=== PATIENT | female | born 1950 | race Caucasian/White ===

== ENCOUNTER 2017-06-28 09:46 | Emergency (ER) | payer MEDICARE, OTHER ==
[2017-06-28] MEDS ORDERED: diphenhydrAMINE 50 MG/ML SDV IVPUSH ONE (10:45)
[2017-06-28] MEDS ORDERED: EPINEPHrine 1 MG/ML SDV IM ONE ×2 (10:45→11:53)
[2017-06-28] MEDS ORDERED: methylPREDNISolone Sodium Succinate 125 MG/2 ML SDV IVPUSH ONE (10:45)
[2017-06-28] MEDS ORDERED: Famotidine 20 MG/2 ML SDV IVPUSH ONE (10:45)
[2017-06-28] MEDS ORDERED: Sodium Chloride 0.9% 10 ML Syringe FLUSH PRN (10:45)
--- NOTE | 2017-06-28 10:49 | EDM.PDOC ---
ED HPI GENERAL MEDICAL PROBLEM - General Chief Complaint: Skin Complaint Stated Complaint: HIVES,FACIAL SWELLING Time Seen by Provider: 06/28/17 10:28 Source of Information: Reports: Patient, RN Notes Reviewed - History of Present Illness INITIAL COMMENTS - FREE TEXT/NARRATIVE: 66-year-old lady comes in with onset of hives 3 or 4 days ago. She had been on minocycline for about a month and also niacin for pemphigoid vulgaris. That all has gotten better and totally cleared up. However now the hives have been worsening over the past 2-3 days and also she has developed some swelling of her lower lip and soft tissue under her jaw. She did take 5 mg Zyrtec last evening and then again 5 mg this morning and that has helped with the hives have not faded out. They're just less itchy. She does not feel short of breath. However she does feel some discomfort in her throat with swallowing. He is never had allergic reaction before. No other meds at this time. Tongue does not feel swollen. She did have some lobster last week but does not think the hives started coming until a day or 2 later. Treatments RINKMAN: Reports: Other (see below) Other Treatments RINKMAN: [email or web address] - Related Data Allergies Allergy/AdvReac Type Severity Reaction Status Date / Time No Known Allergies Allergy Verified 06/28/17 10:14 Home Meds: Home Meds Minocycline [Minocin] 100 mg PO BID 06/28/17 [History] Niacinamide 500 mg PO TID 06/28/17 [History] Past Medical History - Past Health History Medical/Surgical History: Denies Medical/Surgical History Musculoskeletal History: Reports: RA Dermatologic History: Reports: Urticaria, Other (See Below) Other Dermatologic History: bullosa acquisita Social & Family History - Family History Family Medical History: Noncontributory - Tobacco Use Smoking Status *Q: Never Smoker - Caffeine Use Caffeine Use: Reports: None - Recreational Drug Use Recreational Drug Use: No ED ROS GENERAL - Review of Systems Review Of Systems: See Below Constitutional: Denies: Fever, Chills, Diaphoresis HEENT: Reports: Other. Denies: Throat Pain Respiratory: Denies: Shortness of Breath (Swelling of lower lip), Pleuritic Chest Pain Cardiovascular: Denies: Chest Pain GI/Abdominal: Denies: Abdominal Pain, Nausea, Vomiting Musculoskeletal: Reports: Other (History of chronic rheumatoid arthritis) Skin: Reports: Urticaria (Scattered hives bilateral knees bilateral forearms and shoulders primarily, a couple of small hives on her neck, chest abdomen and back are all relatively clear) Neurological: Reports: No Symptoms ED EXAM, SKIN/RASH Exam: See Below General Appearance: Alert, Mild Distress Eye Exam: Bilateral Eye: PERRL Throat/Mouth: Other (Results mild to moderate swelling of her lower lip, tongue is not swollen, pharynx not inflamed) Head: Facial Swelling (Swelling of the lower lip, no other facial swelling) Respiratory/Chest: No Respiratory Distress, Lungs Clear, Normal Breath Sounds Cardiovascular: Tachycardia Extremities: Other (Severe arthritic deformity both hands, rheumatoid nodules both forearms) Neurological: Alert, Oriented, No Motor/Sensory Deficits Skin: Warm, Dry, Normal Color Course - Vital Signs Last Recorded V/S: Last Vital Signs Temp 97.6 F 06/28/17 10:00 Pulse 106 H 06/28/17 10:00 Resp 18 06/28/17 10:00 BP 155/83 H 06/28/17 10:00 Pulse Ox 99 06/28/17 10:00 - Orders/Labs/Meds Orders: Active Orders 24 hr Category Date Time Status Peripheral IV Care [RC] . DIRECTED Care 06/28/17 10:46 Active Sodium Chloride 0.9% [Saline Flush] Med 06/28/17 10:45 Active 10 ml FLUSH ASDIRECTED PRN Peripheral IV Insertion Adult [OM.PC] Stat Oth 06/28/17 10:45 Ordered Medication Orders Sodium Chloride (Saline Flush) 10 ml FLUSH ASDIRECTED PRN PRN Reason: Keep Vein Open Last Admin: 06/28/17 11:00 Dose: 10 ml Meds: Medications Generic Name Dose Route Start Last Admin Trade Name Freq PRN Reason Stop Dose Admin Sodium Chloride 10 ml 06/28/17 10:45 06/28/17 11:00 Saline Flush FLUSH 10 ml ASDIRECTED PRN Administration Keep Vein Open Discontinued Medications Generic Name Dose Route Start Last Admin Trade Name Freq PRN Reason Stop Dose Admin Diphenhydramine HCl 25 mg 06/28/17 10:45 06/28/17 10:59 Benadryl IVPUSH 06/28/17 10:46 25 mg ONETIME ONE Administration Epinephrine HCl 0.3 mg 06/28/17 10:45 06/28/17 10:58 Adrenalin IM 06/28/17 10:46 0.3 mg ONETIME ONE Administration Epinephrine HCl 0.2 mg 06/28/17 11:53 06/28/17 12:00 Adrenalin IM 06/28/17 11:54 0.2 mg ONETIME ONE Administration Famotidine 20 mg 06/28/17 10:45 06/28/17 11:00 Pepcid IVPUSH 06/28/17 10:46 20 mg ONETIME ONE Administration Methylprednisolone Sodium Succinate 125 mg 06/28/17 10:45 06/28/17 10:59 Solu-Medrol IVPUSH 06/28/17 10:46 125 mg ONETIME ONE Administration - Re-Assessments/Exams Free Text/Narrative Re-Assessment/Exam: 06/28/17 11:40. Patient doing much better hives are still present but feeding. Lower lip swelling is still present but less from arrival. She feels like her neck is less swollen. Will give further appendectomy 0.2 mg IM at this time. 12:30. Eyes are mostly gone, mouth and neck continues to get better. she does feel up to going home at this time. Discharge instructions as documented. Departure - Departure Time of Disposition: 12:25 Disposition: Home, Self-Care 01 Condition: Fair Clinical Impression: Allergic angioedema Qualifiers: Encounter type: initial encounter Qualified Code(s): T78.3XXA - Angioneurotic edema, initial encounter - Discharge Information Referrals: PCP,Not In Area [Primary Care Provider] - Forms: ED Department Discharge Additional Instructions: Take the additional 5 mg Zyrtec as discussed when you get home and than continue that either 10 mg daily or all at one time or 5 mg twice daily. Prednisone 20 mg daily with your next dose this evening and then the next 2 mornings. Follow-up clinic if not better and getting back to normal within 2-3 days. Return to ED if symptoms worsening in any way. - My Orders Last 24 Hours: My Active Orders 06/28/17 10:45 Sodium Chloride 0.9% [Saline Flush] 10 ml FLUSH ASDIRECTED PRN Peripheral IV Insertion Adult [OM.PC] Stat 06/28/17 10:46 Peripheral IV Care [RC] . DIRECTED - Assessment/Plan Last 24 Hours: My Active Orders 06/28/17 10:45 Sodium Chloride 0.9% [Saline Flush] 10 ml FLUSH ASDIRECTED PRN Peripheral IV Insertion Adult [OM.PC] Stat 06/28/17 10:46 Peripheral IV Care [RC] . DIRECTED
== END 2017-06-28 13:00 | disposition home or self-care (01) ==
LOC: JD.ED 09:46
DX: T78.3XXA Angioneurotic edema, initial encounter (principal)
CPT/HCPCS: 96372; 96374; 96375; 99283; J0171; J1200; J2930; J7050; 99284

== ENCOUNTER 2017-06-30 08:05 | Emergency (ER) | payer MEDICARE, OTHER ==
[2017-06-30] MEDS ORDERED: EPINEPHrine 1 MG/ML SDV IM ONE (08:35)
[2017-06-30] MEDS ORDERED: methylPREDNISolone Sodium Succinate 125 MG/2 ML SDV IVPUSH ONE (08:36)
[2017-06-30] MEDS ORDERED: Famotidine 20 MG Tab PO ONE (08:36)
--- NOTE | 2017-06-30 10:56 | EDM.PDOC ---
ED HPI GENERAL MEDICAL PROBLEM - General Chief Complaint: Allergic Reaction Stated Complaint: ALLERGIC REACTION THROAT CLOSING UP Time Seen by Provider: 06/30/17 08:16 Source of Information: Reports: Patient, RN Notes Reviewed - History of Present Illness INITIAL COMMENTS - FREE TEXT/NARRATIVE: 66-year-old lady comes in with swelling of her upper neck, difficulty swallowing. She presented to the ED 2 days ago with scattered hives similar symptoms along with swelling of her lower lip. Please refer to that record for details. She had been having allergic symptoms for about 3 or 4 days at that time. Treated with IV Solu-Medrol, 0.3 mg epi IM other meds as appropriate with good resolution of symptoms. She states she did better yesterday but then this morning awakened the swelling of her upper neck present but not as bad as 2 days ago. She has no rash or hives today. It's that all cleared yesterday. No shortness of breath or difficulty breathing. 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 - Related Data Allergies Allergy/AdvReac Type Severity Reaction Status Date / Time minocycline Allergy Respiratory Verified 06/30/17 08:17 Distress Home Meds: Home Meds Prednisone [IJD: predniSONE] 20 mg PO DAILY 06/30/17 [History] Past Medical History - Past Health History Medical/Surgical History: Denies Medical/Surgical History Musculoskeletal History: Reports: RA Dermatologic History: Reports: Urticaria, Other (See Below) Other Dermatologic History: bullosa acquisita Social & Family History - Family History Family Medical History: Noncontributory - Tobacco Use Smoking Status *Q: Never Smoker Second Hand Smoke Exposure: No - Caffeine Use Caffeine Use: Reports: Coffee - Recreational Drug Use Recreational Drug Use: No ED ROS ALLERGIC REACTION - Review of Systems Review Of Systems: See Below Constitutional: Denies: Fever, Chills, Diaphoresis HEENT: Reports: Throat Swelling (Swelling of upper anterior neck below the jaw) . Denies: Throat Pain Respiratory: Denies: Shortness of Breath, Wheezing, Cough Cardiovascular: Denies: Chest Pain GI/Abdominal: Reports: Other (Difficulty swallowing). Denies: Abdominal Pain Musculoskeletal: Denies: Shoulder Pain, Arm Pain, Back Pain Skin: Denies: Pruritis (Previous hives and uticaria are gone), Rash ED EXAM GENERAL NO PERIP PULSE - Physical Exam Exam: See Below General Appearance: Alert, Mild Distress Eye Exam: Bilateral Eye: PERRL Nose: Normal Inspection Throat/Mouth: Normal Inspection, Normal Oropharynx Head: Facial Swelling (Slight swelling of the lower lip, there is swelling of the anterior neck under her chin, mild, less severe than 2 days ago) Neck: Other (Mild swelling of the soft tissue under her jaw.) Respiratory/Chest: No Respiratory Distress, Lungs Clear Cardiovascular: Regular Rate, Rhythm Extremities: Normal Inspection, Normal Range of Motion Neurological: Alert, Oriented, No Motor/Sensory Deficits Skin Exam: Warm, Dry, Normal Color, No Rash Course - Vital Signs Last Recorded V/S: Last Vital Signs Temp 98.6 F 06/30/17 08:13 Pulse 89 06/30/17 08:13 Resp 16 06/30/17 08:13 BP 137/80 06/30/17 08:13 Pulse Ox 96 06/30/17 08:13 - Orders/Labs/Meds Meds: Medications Discontinued Medications Generic Name Dose Route Start Last Admin Trade Name Freq PRN Reason Stop Dose Admin Epinephrine HCl 0.2 mg 06/30/17 08:35 06/30/17 08:57 Adrenalin IM 06/30/17 08:36 0.2 mg ONETIME ONE Administration Famotidine 20 mg 06/30/17 08:36 06/30/17 08:59 Pepcid PO 06/30/17 08:37 20 mg ONETIME ONE Administration Methylprednisolone Sodium Succinate 125 mg 06/30/17 08:36 06/30/17 08:59 Solu-Medrol IVPUSH 06/30/17 08:37 125 mg ONETIME ONE Administration - Re-Assessments/Exams Free Text/Narrative Re-Assessment/Exam: 06/30/17 19:55 Patient was treated with IM epi and also Solu-Medrol 125 mg IV. With that and time her symptoms completely resolved. She had taken Zyrtec at home and has been on that for the last several days. Departure - Departure Time of Disposition: 10:52 Disposition: Home, Self-Care 01 Condition: Fair Clinical Impression: Allergic reaction Qualifiers: Encounter type: initial encounter Qualified Code(s): T78.40XA - Allergy, unspecified, initial encounter Difficulty swallowing Qualifiers: Dysphagia type: unspecified Qualified Code(s): R13.10 - Dysphagia, unspecified - Discharge Information Referrals: PCP,Not In Area [Primary Care Provider] - Forms: ED Department Discharge Additional Instructions: Rest with head and neck elevated above chest is much as possible today, and tenuous the Zyrtec 5 mg twice daily for the next 5 days, symptoms should gradually continue to resolve, it is expected he will be back to normal within 1 -3 days. You may take prednisone 20 mg once or twice daily if needed for any further difficulty breathing or swallowing. Also take prednisone if your hives were come back in any way. Follow-up clinic if not back to normal within 2-3 days as expected, return to ED as needed.
== END 2017-06-30 11:15 | disposition home or self-care (01) ==
LOC: JD.ED 08:05
DX: R13.10 Dysphagia, unspecified (principal); T36.4X5A Adverse effect of tetracyclines, initial encounter; Z88.1 Allergy status to other antibiotic agents; Z79.899 Other long term (current) drug therapy
CPT/HCPCS: 96372; 96374; 99284; A9270; J0171; J2930

== ENCOUNTER 2020-02-06 08:01 | Day surgery (SDC) | payer MEDICARE, OTHER ==
--- NOTE | 2020-02-06 07:31 | PCM.PREANE ---
<Maribel Warner - Last Filed: 02/06/20 07:24> Preanesthetic Assessment - Procedure Proposed Procedure: Diagnostic EKG and Diagnostic Colonoscopy - Anesthesia/Transfusion/Family Hx Anesthesia History: Prior Anesthesia Without Reaction Family History of Anesthesia Reaction: No Transfusion History: No Prior Transfusion(s) Intubation History: Unknown - Review of Systems Pulmonary: No Symptoms (Former smoker) Cardiovascular: No Symptoms (History of HTN) Gastrointestinal: No Symptoms (Large Hiatal Hernia via chest CT, History of Hernesto's esophagus) Neurological: No Symptoms (History of rheumatoid arthritis) - Physical Assessment NPO Status Date: 02/05/20 Vital Signs: HR: B/P: Resp: Temp: Sat: ASA Class: 2 Mental Status: Alert & Oriented x3 - Lab Values: Labs reviewed and noted and within acceptable ranges to proceed with scheduled procedure. - Imaging/EKG Impressions: Chest CT: mild fibrosis Carotid Artery US: mild-moderate amount of plaque with in the carotid bulb. - Allergies Allergies/Adverse Reactions: Allergies Allergy/AdvReac Type Severity Reaction Status Date / Time minocycline Allergy Respiratory Verified 02/05/20 14:09 Distress - Anesthesia Plan Pre-Op Medication Ordered: None - Acknowledgements Anesthesia Type Planned: MAC Pt an Appropriate Candidate for the Planned Anesthesia: Yes Alternatives and Risks of Anesthesia Discussed w Pt/Guardian: Yes Pt/Guardian Understands and Agrees with Anesthesia Plan: Yes PreAnesthesia Questionnaire - Past Health History Medical/Surgical History: Denies Medical/Surgical History HEENT History: Reports: None Cardiovascular History: Reports: None Respiratory History: Reports: None Gastrointestinal History: Reports: None Genitourinary History: Reports: None ANIMAL TAXONOMIST History: Reports: Other (See Below) Other OB/BYN History: LAPAROSCOPY Musculoskeletal History: Reports: Arthritis, RA Neurological History: Reports: None Psychiatric History: Reports: None Endocrine/Metabolic History: Reports: None Hematologic History: Reports: Anemia Immunologic History: Reports: None Oncologic (Cancer) History: Reports: None Dermatologic History: Reports: Urticaria, Other (See Below) Other Dermatologic History: bullosa acquisita, back lipoma - Infectious Disease History Infectious Disease History: Reports: None - Past Surgical History Head Surgeries/Procedures: Reports: None HEENT Surgical History: Reports: Oral Surgery, Other (See Below) Other HEENT Surgeries/Procedures: DENTAL IMPLANTS Cardiovascular Surgical History: Reports: None Respiratory Surgical History: Reports: None GI Surgical History: Reports: Colonoscopy Female Surgical History: Reports: None Male Surgical History: Reports: None Endocrine Surgical History: Reports: None Neurological Surgical History: Reports: None Musculoskeletal Surgical History: Reports: Other (See Below) Other Musculoskeletal Surgeries/Procedures:: BILATERAL FOOT SURGERIES, BILATERAL WRIST SURGERIES, RIGHT HAND JOINT REPLACEMENTS Oncologic Surgical History: Reports: None - SUBSTANCE USE Smoking Status *Q: Former Smoker Recreational Drug Use History: No - HOME MEDS Home Medications: Home Meds . [No Known Home Meds] 02/05/20 [History] <Yanely Kaufman M - Last Filed: 02/06/20 08:19> Preanesthetic Assessment - Anesthesia/Transfusion/Family Hx Anesthesia History: Prior Anesthesia Without Reaction Family History of Anesthesia Reaction: No Transfusion History: Prior Transfusion Without Reaction - Review of Systems General: No Symptoms Pulmonary: No Symptoms Cardiovascular: No Symptoms Gastrointestinal: No Symptoms Neurological: No Symptoms Other: Reports: None - Physical Assessment NPO Status Date: 02/06/20 NPO Status Time: 04:30 Vital Signs: 91 160/81 97.9 16 97% Height: 5 ft Weight: 61.2 kg ASA Class: 2 Mental Status: Alert & Oriented x3 Airway Class: Mallampati = 1 Dentition: Reports: Implants (full top and bottom) Thyro-Mental Finger Breadths: 3 Mouth Opening Finger Breadths: 3 ROM/Head Extension: Full Lungs: Clear to Auscultation, Normal Respiratory Effort Cardiovascular: Regular Rate, Regular Rhythm - Blood Blood Available: No - Anesthesia Plan Pre-Op Medication Ordered: None - Acknowledgements Anesthesia Type Planned: MAC Pt an Appropriate Candidate for the Planned Anesthesia: Yes Alternatives and Risks of Anesthesia Discussed w Pt/Guardian: Yes Pt/Guardian Understands and Agrees with Anesthesia Plan: Yes PreAnesthesia Questionnaire Cardiovascular History: Reports: Hypertension Respiratory History: Reports: None Gastrointestinal History: Reports: Other (See Below) (Barretts) Musculoskeletal History: Reports: Arthritis, RA Neurological History: Reports: None Psychiatric History: Reports: None Endocrine/Metabolic History: Reports: None Oncologic (Cancer) History: Reports: None - Past Surgical History HEENT Surgical History: Reports: Oral Surgery Cardiovascular Surgical History: Reports: None GI Surgical History: Reports: Colonoscopy Musculoskeletal Surgical History: Reports: Other (See Below) - SUBSTANCE USE Smoking Status *Q: Former Smoker Tobacco Use Within Last Twelve Months: No Second Hand Smoke Exposure: No Days Per Week of Alcohol Use: 0 Recreational Drug Use History: No - CURRENT (IN HOUSE) MEDS Current Meds: Current Medications Lactated Ringer's (Ringers, Lactated) 1,000 mls @ 125 mls/hr IV ASDIRECTED KADEN Stop: 02/06/20 23:00 Lidocaine/Sodium Bicarbonate (Buffered Lidocaine 1% In Ns 8.4%) 0.25 ml IDERM ONETIME PRN PRN Reason: Prior to IV Start Stop: 02/06/20 18:00 Sodium Chloride (Saline Flush) 10 ml FLUSH ASDIRECTED PRN PRN Reason: Keep Vein Open Stop: 02/06/20 18:00 Discontinued Medications Fentanyl (Sublimaze) Confirm Administered Dose 100 mcg .ROUTE .STK-MED ONE Stop: 02/06/20 07:10 Lidocaine HCl (Lidocaine 1%) Confirm Administered Dose 4 ml .ROUTE .STK-MED ONE Stop: 02/06/20 07:10 Propofol (Diprivan 20 Ml) Confirm Administered Dose 400 mg .ROUTE .STK-MED ONE Stop: 02/06/20 07:10
[~2020-02-06 08:01] MED LIST: Lactated Ringers 1,000 ML IV SCH; Lidocaine 1% 2 ML SDV ONE; Lidocaine 1%/Sod Bicarbonate in NS 8.4% 1 ML Syringe IDERM PRN; Propofol 200 MG/20 ML SDV ONE; Sodium Chloride 0.9% 10 ML Syringe FLUSH PRN; fentaNYL 100 MCG/2 ML SDV ONE
[2020-02-06] MEDS ORDERED: Propofol 200 MG/20 ML SDV ONE (09:04)
--- NOTE | 2020-02-06 09:26 | PCM48HPAN ---
Post Anesthesia Note - EVALUATION WITHIN 48HRS OF ANESTHETIC Vital Signs in Normal Range: Yes Patient Participated in Evaluation: Yes Respiratory Function Stable: Yes Airway Patent: Yes Cardiovascular Function Stable: Yes Hydration Status Stable: Yes Pain Control Satisfactory: Yes Nausea and Vomiting Control Satisfactory: Yes Mental Status Recovered: Yes Vital Signs: Last Vital Signs Temp 36.6 C 02/06/20 08:00 Pulse 91 02/06/20 08:00 Resp 16 02/06/20 08:00 BP 160/81 H 02/06/20 08:00 Pulse Ox 97 02/06/20 08:00
--- NOTE | 2020-02-06 09:29 | PCM.PRNOTE ---
- Free Text/Narrative Note: Date: 02/06/2020 Procedure: diagnostic EGD, colonoscopy Indication: iron deficiency anemia, history of hiatal hernia with Guerrero esophagus Endoscopist: Fede De León MD Findings: large hiatal hernia. Duodenum appeared normal. Biopsy of pylorus and cardia obtained. No visible Andres ulcer. Apparent short segment Guerrero esophagus with mild linear erythematous streaking of distal esophageal mucosa. Biopsies obtained. Colon prep was excellent. There was a prominent ridge with polypoid-appearing surface near the hepatic flexure. This was not amenable to complete endoscopic resection; its clinical significance is not obvious but several biopsies were taken and tattoo ink injected submucosally at the site. Three small adjacent sessile polyps noted in sigmoid colon about 20 cm from anal verge, sent as one specimen. Minor diverticular disease. Hypertrophied anal papilla noted on retroflexion within the rectum. Detailed Report: The patient was taken to the endoscopy suite and placed in left lateral decubitus position. Time out was performed and monitored anesthesia care initiated. A bite block was placed. The endoscope was inserted into the mouth and advanced to the duodenum with ease. Some apparent inflammatory changes were noted of the antral mucosa surrounding the pylorus. A biopsy was obtained. On retroflexion, a large hiatal hernia was noted. No Andres ulcers were noted; a biopsy of the gastric cardia was obtained. The esophagus showed some kinking, and at the Z line there were two short tongues of salmon-colored mucosa extending proximally. Several biopsies were obtained. The esophageal mucosa appearing to have some minor linear erythematous streaking suggestive of reflux. No other lesions were noted, and air was suctioned from the stomach prior to withdrawal of the scope. Attention was then turned to colonoscopy. The anus appeared normal. Digital exam was unremarkable. The colonoscope was inserted and advanced to the cecum easily. The prep was excellent. The ileocecal valve was visualized. The scope was slowly withdrawn as mucosal surfaces were carefully inspected. There was a slightly indurated ridge near the hepatic flexure, with mucosal changes that appeared polypoid. The lesion spanned about 1/3 the circumference of the lumen. Several biopsies were taken with forceps, though the lesion was not able to be completely removed. Tattoo ink was injected submucosally at the site. There were a few scattered small diverticula in the sigmoid. There were three adjacent smal l sessile polyps in the sigmoid, 20 cm from the anal verge. These were biopsied with cold forceps. I suspect hyperplastic polyps given the gross appearance. A hypertrophied anal papilla was seen on retroflexion within the rectum. Air was suctioned prior to withdrawal of the scope. The patient tolerated the procedure well.
== END 2020-02-06 10:05 | disposition home or self-care (01) ==
LOC: JD.SDS 08:01
PROVIDERS: ATTEND Surgery
DX: D12.3 Benign neoplasm of transverse colon (principal); D50.9 Iron deficiency anemia, unspecified; K22.70 Barrett's esophagus without dysplasia; K44.9 Diaphragmatic hernia without obstruction or gangrene; K57.30 Diverticulosis of large intestine without perforation or abscess without bleeding; K62.89 Other specified diseases of anus and rectum; K31.89 Other diseases of stomach and duodenum; D17.1 Benign lipomatous neoplasm of skin and subcutaneous tissue of trunk; M06.9 Rheumatoid arthritis, unspecified; Z80.0 Family history of malignant neoplasm of digestive organs; Z88.1 Allergy status to other antibiotic agents; Z87.891 Personal history of nicotine dependence
CPT/HCPCS: 43239; 45380; 45381; J2001; J2704; J3010; J7120; 00813

== ENCOUNTER 2020-03-14 07:16 | Inpatient (IN) | payer MEDICARE, OTHER ==
[~2020-03-14 07:16] MED LIST changes: -Lidocaine 1% 2 ML SDV ONE; -Propofol 200 MG/20 ML SDV ONE; -fentaNYL 100 MCG/2 ML SDV ONE
[2020-03-14] MEDS ORDERED: Propofol 200 MG/20 ML SDV ONE (08:38)
[2020-03-14] MEDS ORDERED: Midazolam 1 MG/ML 2 ML SDV ONE (08:39)
[2020-03-14] MEDS ORDERED: fentaNYL 100 MCG/2 ML SDV ONE ×2 (08:39→13:43)
[2020-03-14] MEDS ORDERED: Lidocaine 1% 4 ML ONE (08:39)
[2020-03-14] MEDS ORDERED: Ondansetron 4 MG/2 ML SDV ONE (08:41)
[2020-03-14] MEDS ORDERED: Rocuronium 50 MG/5 ML Vial ONE ×2 (08:41→12:11)
[2020-03-14] MEDS ORDERED: Dexamethasone 4 MG/ML 5 ML MDV ONE (08:41)
--- NOTE | 2020-03-14 10:09 | PCM.PREANE ---
Preanesthetic Assessment - Procedure Proposed Procedure: Laparoscopic right colectomy - Anesthesia/Transfusion/Family Hx Anesthesia History: Prior Anesthesia Without Reaction Family History of Anesthesia Reaction: No Transfusion History: Prior Transfusion Without Reaction Intubation History: Unknown - Review of Systems General: No Symptoms Pulmonary: No Symptoms Cardiovascular: No Symptoms Gastrointestinal: No Symptoms Neurological: No Symptoms Other: Reports: None - Physical Assessment NPO Status Date: 03/13/20 NPO Status Time: 23:00 Vital Signs: Last Vital Signs Temp 36.6 C 03/14/20 09:00 Pulse 91 03/14/20 09:00 Resp 16 03/14/20 09:00 BP 155/78 H 03/14/20 09:00 Pulse Ox 95 03/14/20 09:00 Height: 1.52 m Weight: 60.781 kg ASA Class: 2 Mental Status: Alert & Oriented x3 Airway Class: Mallampati = 2 Dentition: Reports: Normal Dentition, Implants Thyro-Mental Finger Breadths: 2 Mouth Opening Finger Breadths: 4 ROM/Head Extension: Full Lungs: Clear to Auscultation, Normal Respiratory Effort Cardiovascular: Regular Rate, Regular Rhythm - Allergies Allergies/Adverse Reactions: Allergies Allergy/AdvReac Type Severity Reaction Status Date / Time minocycline Allergy Respiratory Verified 03/13/20 15:41 Distress - Blood Blood Available: No - Anesthesia Plan Pre-Op Medication Ordered: None - Acknowledgements Anesthesia Type Planned: General Anesthesia Pt an Appropriate Candidate for the Planned Anesthesia: Yes Alternatives and Risks of Anesthesia Discussed w Pt/Guardian: Yes Pt/Guardian Understands and Agrees with Anesthesia Plan: Yes PreAnesthesia Questionnaire - Past Health History Medical/Surgical History: Denies Medical/Surgical History HEENT History: Reports: Impaired Vision Cardiovascular History: Reports: Hypertension Respiratory History: Reports: None Gastrointestinal History: Reports: None Genitourinary History: Reports: None RUG REPAIRER History: Reports: , Other (See Below) Other OB/BYN History: LAPAROSCOPY Musculoskeletal History: Reports: Arthritis, RA Neurological History: Reports: None Psychiatric History: Reports: None Endocrine/Metabolic History: Reports: None Hematologic History: Reports: Anemia Immunologic History: Reports: None Oncologic (Cancer) History: Reports: None Dermatologic History: Reports: Urticaria, Other (See Below) Other Dermatologic History: bullosa acquisita - Infectious Disease History Infectious Disease History: Reports: None - Past Surgical History Head Surgeries/Procedures: Reports: None HEENT Surgical History: Reports: Oral Surgery Other HEENT Surgeries/Procedures: DENTAL IMPLANTS Cardiovascular Surgical History: Reports: None Respiratory Surgical History: Reports: None GI Surgical History: Reports: Colonoscopy Female Surgical History: Reports: None Male Surgical History: Reports: None Endocrine Surgical History: Reports: None Neurological Surgical History: Reports: None Musculoskeletal Surgical History: Reports: Other (See Below) Other Musculoskeletal Surgeries/Procedures:: BILATERAL FOOT SURGERIES, BILATERAL WRIST SURGERIES, RIGHT HAND JOINT REPLACEMENTS Oncologic Surgical History: Reports: None - SUBSTANCE USE Tobacco Use Status *Q: Never Tobacco User Recreational Drug Use History: No - HOME MEDS Home Medications: Home Meds . [No Known Home Meds] 02/05/20 [History] - CURRENT (IN HOUSE) MEDS Current Meds: Current Medications Lactated Ringer's (Ringers, Lactated) 1,000 mls @ 125 mls/hr IV ASDIRECTED [facility] Stop: 03/14/20 23:00 Last Admin: 03/14/20 09:44 Dose: 125 mls/hr Documented by: Lidocaine/Sodium Bicarbonate (Buffered Lidocaine 1% In Ns 8.4%) 0.25 ml IDERM ONETIME PRN PRN Reason: Prior to IV Start Stop: 03/14/20 18:00 Last Admin: 03/14/20 09:44 Dose: 0.25 ml Documented by: Sodium Chloride (Saline Flush) 10 ml FLUSH ASDIRECTED PRN PRN Reason: Keep Vein Open Stop: 03/14/20 18:00 Discontinued Medications Dexamethasone (Dexamethasone) Confirm Administered Dose 20 mg .ROUTE .STK-MED ONE Stop: 03/14/20 08:42 Fentanyl (Sublimaze) Confirm Administered Dose 100 mcg .ROUTE .STK-MED ONE Stop: 03/14/20 08:40 Lidocaine HCl (Xylocaine-Mpf 1%) Confirm Administered Dose 4 mls @ as directed .ROUTE .STK-MED ONE Stop: 03/14/20 08:40 Midazolam HCl (Versed 1 Mg/Ml) Confirm Administered Dose 2 mg .ROUTE .STK-MED ONE Stop: 03/14/20 08:40 Ondansetron HCl (Zofran) Confirm Administered Dose 4 mg .ROUTE .STK-MED ONE Stop: 03/14/20 08:42 Propofol (Diprivan 20 Ml) Confirm Administered Dose 200 mg .ROUTE .STK-MED ONE Stop: 03/14/20 08:39 Rocuronium [place] (Zemuron) Confirm Administered Dose 50 mg .ROUTE .STK-MED ONE Stop: 03/14/20 08:42
[2020-03-14] MEDS: Bupivacaine 0.5%/EPINEPHrine 1:200,000 50 ML MDV ONE ×2 (10:55→12:01)
[2020-03-14] MEDS ORDERED: HYDROmorphone 0.5 MG/0.5 ML Syringe ONE ×4 (11:23→12:13)
[2020-03-14] MEDS ORDERED: Ketamine 500 mg/10 ML MDV ONE (11:27)
[2020-03-14] MEDS ORDERED: Lactated Ringers 1,000 ML ONE (11:43)
[2020-03-14] MEDS ORDERED: Glycopyrrolate 0.2 MG/ML SDV ONE (12:58)
[2020-03-14] MEDS ORDERED: Morphine 2 MG/ML SYRINGE IVPUSH PRN (13:16)
[2020-03-14] MEDS ORDERED: Ondansetron 4 MG in Sodium Chloride 0.9% 50 ML IV PRN (13:18)
--- NOTE | 2020-03-14 13:33 | PCM.PRNOTE ---
- Free Text/Narrative Note: Date: 03/14/2020 Operation: laparoscopic right colectomy Indication: endoscopically unresectable polyp at hepatic flexure Surgeon: Fede De León MD Findings: no abnormal findings. serosal tattoo ink marked distal aspect of specimen. stapled side to side ileocolic anastomosis created with apparent rich blood supply and no tension or mesenteric twisting. Detailed Report: The patient was taken to the OR and placed supine. Time out was performed and general endotracheal anesthesia initiated. The left arm was tucked at the patient's side and a Reese catheter was placed. The abdomen was prepped and draped in sterile fashion. Pneumoperitoneum was established with Veress needle placement at Ernst's point. Air was aspirated superior to the umbilicus, and a 12 mm bladed trocar was placed at this site. A 10 mm 30 degree laparoscope was inserted into the abdomen. The Veress had caused no injury and was removed. Additional 5 mm ports were placed at the LLQ, RLQ, and LUQ under laparoscopic visualization. The patient was placed in Trendelenburg and rotated toward the surgeon standing on the patient's left side. Omental adhesions were then freed from the ascending colon using the Ligasure. Omentum was reflected superiorly and the small bowel moved to the LUQ to show the right colon. The cecum was grasped and pulled anteriorly and inferiorly, placing some tension on the ileocolic pedicle. A window was developed in the colonic mesentery medially, just deep to the vessels. The vessels were sealed and divided with the Ligasure. Medial to lateral dissection was completed in the proper plane, keeping retroperitoneal structures down and protected. The duodenum was identified and protected. Next, the terminal ileum was mobilized and divided a few centimeters proximal to the ileocecal junction using a powered linear cutting stapler. Remaining lateral attachments of the ascending colon were divided with the Ligasure, meeting up with the original dissection plane. The proximal transverse colon was then mobilized, bringing it toward midline from the right upper quadrant. With good mobilization assured, Graspers were placed on the stapled ends. The supraumbilical incision was extended cephalad to a final measure of 6 cm. The distal staple line was passed up into the field and the colon was externalized. The tattoo inking was seen, and the powered stapler was used to divide the colon just distal to this site. The specimen was then passed off the field. The stapled end of the ileum was then externalized as well. To provide better laxity for anastomosis, an additional 5 cm of ileum was resected using the stapler. The mesentery was inspected and did not appear to be twisted. The ileum and colon were aligned side by side for anastomosis. Enterotomies were made to permit passage of the linear stapler and a 60 mm blue load was used to create the anastomosis. The remaining enterotomy was closed with a 30 mm TA stapler. The bowel was reduced into the abdomen and the anastomosis draped with omentum. Fascia at the larger incision was closed with running 0 PDS suture. All skin incisions were closed with vicryl and dressed with mastasol and steri strips. A total of 30 c 0.5% marcaine with epinephrine was used for local anesthetic. The patient tolerated the procedure well.
--- NOTE | 2020-03-14 13:36 | PCM.POSTAN ---
POST ANESTHESIA ASSESSMENT - MENTAL STATUS Mental Status: Alert - VITAL SIGNS Vital Signs: Last Vital Signs 1326 174/86 100 95 21 97.1 Temp 36.6 C 03/14/20 09:00 Pulse 91 03/14/20 09:00 Resp 16 03/14/20 09:00 BP 155/78 H 03/14/20 09:00 Pulse Ox 95 03/14/20 09:00 - RESPIRATORY Respiratory Status: Respiratory Rate WNL, Airway Patent, O2 Saturation Stable, Supplemental Oxygen - CARDIOVASCULAR CV Status: Pulse Rate WNL, Blood Pressure Stable - GASTROINTESTINAL GI Status: No Symptoms - PAIN Pain Score: 3 - POST OP HYDRATION Hydration Status: Adequate & Stable
[2020-03-14] MEDS ORDERED: HYDROmorphone 0.5 MG/0.5 ML Syringe IVPUSH PRN (13:37)
[2020-03-14] MEDS ORDERED: Ondansetron 4 MG/2 ML SDV IVPUSH PRN (13:37)
[2020-03-14] MEDS: fentaNYL 100 MCG/2 ML SDV IVPUSH PRN ×2 (13:45→14:00)
[2020-03-14] MEDS: Lactated Ringers 1,000 ML IV SCH (15:22)
[2020-03-14] MEDS: Acetaminophen 325 MG Tab PO SCH ×2 (18:40→20:44)
[2020-03-14] MEDS: Heparin Sodium 5,000 Units/ML Vial SUBCUT SCH (20:46)
[2020-03-15] MEDS: oxyCODONE 5 MG Tab PO PRN ×2 (03:08→08:41)
[2020-03-15] MEDS: Lactated Ringers 1,000 ML IV SCH (04:33)
[2020-03-15] MEDS: Heparin Sodium 5,000 Units/ML Vial SUBCUT SCH (05:03)
[2020-03-15] MEDS: Acetaminophen 325 MG Tab PO SCH ×3 (05:04→22:19)
[2020-03-15] MEDS ORDERED: Ondansetron 4 MG/2 ML SDV IVPUSH PRN (07:02)
[2020-03-15] MEDS ORDERED: Sodium Chloride 0.9% 1,000 ML IV ONE (08:15)
--- NOTE | 2020-03-15 08:35 | PCM.SN.2 ---
- Free Text/Narrative Note: Laparoscopic right colectomy for endoscopically unresectable polyp on 03/14/2020 S: reports discomfort, neck spasm, leg numbness this morning. Belching, no flatus. Tolerating small amount of clear liquids. No nausea. Denies dizziness, lightheadedness. Using very little pain medication. O: AF-VSS urine output ~30 cc/hr Labs this morning significant for Hgb 8.1g/dL, down from about 12 pre- operatively. Creatinine is up from baseline of 0.6 to 1.0. Awake and alert, no acute distress Pallor is improved from yesterday Extremities are warm, well perfused Incision dressings clean, dry, intact Abd soft, appropriately tender clear yellow urine in cosme bag A: POD 1, with evidence of significant blood loss based on lab work. Clinically appears well without sign of active hemorrhage. No indication for transfusion at this time. P: -continue morphine, oxycodone prn with scheduled tylenol -IS, OOB to chair, PT/OT assessment today -LR @ 75 cc/hr. Bolus 1 L NS this morning -maintain cosme catheter for now for accurate measure of hourly urine output -clear liquid diet -repeat CBC, BMP this afternoon -hold heparin. SCD for DVT ppx
--- NOTE | 2020-03-15 08:43 | PCM48HPAN ---
Post Anesthesia Note - EVALUATION WITHIN 48HRS OF ANESTHETIC Vital Signs in Normal Range: Yes Patient Participated in Evaluation: Yes Respiratory Function Stable: Yes Airway Patent: Yes Cardiovascular Function Stable: Yes Hydration Status Stable: Yes Pain Control Satisfactory: Yes (She doesn't have pain from surgery, only the bed and postitioning.) Nausea and Vomiting Control Satisfactory: Yes Mental Status Recovered: Yes Vital Signs: Last Vital Signs Temp 98.4 F 03/15/20 03:21 Pulse 94 03/15/20 03:21 Resp 20 03/15/20 03:21 BP 127/80 03/15/20 03:21 Pulse Ox 93 L 03/15/20 05:47
[2020-03-15] MEDS ORDERED: Lactated Ringers 1,000 ML IV SCH (15:15)
[2020-03-15] MEDS ORDERED: Sodium Chloride 0.9% 250 ML IV SCH (15:45)
[2020-03-16] MEDS: Acetaminophen 325 MG Tab PO SCH ×4 (05:47→21:21)
--- NOTE | 2020-03-16 07:53 | PCM.SN.2 ---
- Free Text/Narrative Note: S/p laparoscopic right colectomy for endoscopically unresectable polyp on 03/14/2020. S: transfused 1 u pRBC yesterday for Hgb 6.9 g/dL with good response, Hgb 7.8 g/Dl this morning. No issues otherwise. Ambulatory, pain controlled, voiding after cosme removal, tolerating diet, reports small amount of flatus. O: AF-VSS labs improved this morning, Cr @ 0.7, glucose a bit low at 70, Hgb at 7.8, appropriate response to transfusion yesterday, no concern for active hemorrhage at this time. Awake and alert, sitting in chair, no distress Comfortable on room air Abd soft, no distention, minimal tenderness, dressings intact, fair amount of ecchymosis surrounding all incisions. A: POD 2, overall doing well. Seems that postoperative bleeding is stopped. P: -scheduled tylenol, oxycodone prn -IS, OOB ambulating -switch IV fluid to D5 1/2 + KCl @ 75 cc/hr -advance to regular diet -Vitals q8h -SCD for DVT ppx. Hold heparin due to risk of hemorrhage -no repeat labs unless clinically indicated -anticipate discharge to home soon once return of bowel function is assured
[2020-03-16] MEDS: D5 1/2 NS w/ 20 mEq/L KCl 1,000 ML IV SCH ×2 (08:16→21:51)
[2020-03-16] MEDS ORDERED: Iron Polysaccharides Complex 150 MG Cap PO SCH (09:00)
[2020-03-16] MEDS ORDERED: Ascorbic Acid 500 MG Tab PO SCH (09:00)
[2020-03-17] MEDS: Acetaminophen 325 MG Tab PO SCH ×2 (05:38→13:43)
[2020-03-17] MEDS ORDERED: Iron Polysaccharides Complex 150 MG Cap PO SCH (06:00)
[2020-03-17] MEDS ORDERED: Ascorbic Acid 500 MG Tab PO SCH (06:00)
--- NOTE | 2020-03-17 08:17 | PCM.SN.2 ---
- Free Text/Narrative Note: S/p laparoscopic right colectomy for endoscopically unresectable polyp on 03/14/2020. S: no acute events. Pain controlled with tylenol alone. Passing some flatus, no BM. Tolerating diet. O: AF-VSS Awake and alert, sitting in chair, no distress Comfortable on room air Abd soft, no distention, minimal tenderness, dressings intact, fair amount of ecchymosis surrounding all incisions, spanning lower abdomen A: POD 3, overall doing well. I think if she does well today it would be reasonable to plan for discharge this evening P: -scheduled tylenol, oxycodone prn -IS, OOB ambulate -amanda IV fluids -regular diet -SCD for DVT ppx -anticipate discharge to home this afternoon vs tomorrow if all looks good- plan to reassess this afternoon
--- NOTE | 2020-03-17 15:12 | PCM.DCSUM1 ---
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 Postoperatively, the patient had a drop in Hgb to as low as 6.9, though at no point was she hemodynamically unstable. She responded appropriately to 1 u pRBC, with Hgb of 7.8 12 hours after transfusion. She was able to tolerate a diet and on POD 2 started passing flatus. On POD 3 she continued to have flatus, had a bowel movement, and was doing well with only tylenol for pain. She was deemed fit for discharge to home on the evening of POD 3. Diagnosis: Stroke: No - Discharge Data Discharge Date: 03/17/20 Discharge Disposition: Home, Self-Care 01 Condition: Good - Referral to Home Health Primary Care Physician: Suzie Alvarado NP - Patient Summary/Data Complications: postoperative hemorrhage, managed non-operatively Consults: Consultations 03/15/20 08:11 Consult to Occupational Therapy [OT Evaluation and Treatment] [CONS] Routine Consult to Physical Therapy [PT Evaluation and Treatment] [CONS] Routine - Patient Instructions Diet: Usual Diet as Tolerated Diet, Other: continue all home medications. Activity: As Tolerated, No Lifting Over 10 Pounds Showering/Bathing: September Shower Wound/Incision Care: Keep Operative Site/Wound Site Clean and Dry Notify Provider of: Fever, Increased Pain, Swelling and Redness, Drainage, Nausea and/or Vomiting - Discharge Plan *PRESCRIPTION DRUG MONITORING PROGRAM REVIEWED*: Not Applicable *COPY OF PRESCRIPTION DRUG MONITORING REPORT IN PATIENT JING: Not Applicable Home Medications: Home Meds Cholecalciferol (Vitamin D3) [Vitamin D3] 5,000 unit PO DAILY 03/15/20 [History] Oxygen Therapy Mode: Room Air - Discharge Summary/Plan Comment DC Time >30 min.: No - General Info Date of Service: 03/17/20 Functional Status: Reports: Pain Controlled, Tolerating Diet, Ambulating, Urinating, Incentive Spirometry - Review of Systems General: Reports: No Symptoms HEENT: Reports: No Symptoms Pulmonary: Reports: No Symptoms Cardiovascular: Reports: No Symptoms Gastrointestinal: Reports: Flatus Genitourinary: Reports: No Symptoms Musculoskeletal: Reports: Joint Pain Skin: Reports: Bruising Neurological: Reports: No Symptoms Psychiatric: Reports: No Symptoms - Patient Data Vitals - Most Recent: Last Vital Signs Temp 36.6 C 03/17/20 05:29 Pulse 88 03/17/20 05:29 Resp 13 03/17/20 05:29 BP 144/74 H 03/17/20 05:29 Pulse Ox 96 03/17/20 05:29 Weight - Most Recent: 64.954 kg I&O - Last 24 hours: Intake & Output 03/17/20 03/17/20 03/17/20 06:59 14:59 22:59 Intake Total 380 Output Total Balance 380 Med Orders - Current: Current Medications Acetaminophen (Tylenol) 975 mg PO Q8H [facility] Last Admin: 03/17/20 13:43 Dose: 975 mg Documented by: Ascorbic Acid (Vitamin C) 500 mg PO DAILY@0600 [facility] Last Admin: 03/17/20 07:04 Dose: 500 mg Documented by: Ondansetron HCl (Zofran) 4 mg IVPUSH Q6H PRN PRN Reason: NAUSEA Oxycodone HCl (Oxycodone) 5 mg PO Q4H PRN PRN Reason: Pain (moderate 4-6) Last Admin: 03/15/20 08:41 Dose: 5 mg Documented by: Polysaccharide Iron Complex (Ferrex 150) 150 mg PO DAILY@0600 [facility] Last Admin: 03/17/20 07:04 Dose: 150 mg Documented by: Discontinued Medications Ascorbic Acid (Vitamin C) 500 mg PO DAILY [facility] Last Admin: 03/16/20 10:45 Dose: 500 mg Documented by: Bupivacaine HCl/Epinephrine Bitart (Marcaine 0.5%/Epinephrine 1:200,000) Confirm Administered Dose 50 ml .ROUTE .STK-MED ONE Stop: 03/14/20 10:39 Last Admin: 03/14/20 10:55 Dose: 45 ml Documented by: Dexamethasone (Dexamethasone) Confirm Administered Dose 20 mg .ROUTE .STK-MED ONE Stop: 03/14/20 08:42 Fentanyl (Sublimaze) Confirm Administered Dose 100 mcg .ROUTE .STK-MED ONE Stop: 03/14/20 08:40 Fentanyl (Sublimaze) 50 mcg IVPUSH Q5M PRN PRN Reason: Pain Stop: 03/14/20 23:00 Last Admin: 03/14/20 14:00 Dose: 50 mcg Documented by: Fentanyl (Sublimaze) Confirm Administered Dose 100 mcg .ROUTE .STK-MED ONE Stop: 03/14/20 13:44 Last Admin: 03/14/20 13:46 Dose: Not Given Documented by: Glycopyrrolate (Robinul) Confirm Administered Dose 0.2 mg .ROUTE .STK-MED ONE Stop: 03/14/20 12:59 Heparin Sodium (Porcine) (Heparin Sodium) 5,000 units SUBCUT Q8H [facility] Last Admin: 03/15/20 05:03 Dose: 5,000 units Documented by: Hydromorphone HCl (Dilaudid) Confirm Administered Dose 0.5 mg .ROUTE .STK-MED ONE Stop: 03/14/20 11:24 Hydromorphone HCl (Dilaudid) Confirm Administered Dose 0.5 mg .ROUTE .STK-MED ONE Stop: 03/14/20 11:43 Hydromorphone HCl (Dilaudid) Confirm Administered Dose 0.5 mg .ROUTE .STK-MED ONE Stop: 03/14/20 11:59 Hydromorphone HCl (Dilaudid) Confirm Administered Dose 0.5 mg .ROUTE .STK-MED ONE Stop: 03/14/20 12:14 Hydromorphone HCl (Dilaudid) 0.5 mg IVPUSH Q10M PRN PRN Reason: Pain (severe 7-10) Stop: 03/14/20 23:00 Last Admin: 03/14/20 13:48 Dose: 0.5 mg Documented by: Lactated Ringer's (Ringers, Lactated) 1,000 mls @ 125 mls/hr IV ASDIRECTED [facility] Stop: 03/14/20 23:00 Last Admin: 03/14/20 09:44 Dose: 125 mls/hr Documented by: Lidocaine HCl (Xylocaine-Mpf 1%) Confirm Administered Dose 4 mls @ as directed .ROUTE .STK-MED ONE Stop: 03/14/20 08:40 Cefoxitin Sodium (Mefoxin In Dextrose,Iso-Osm 2 Gm/50 Ml) Confirm Administered Dose 50 mls @ as directed .ROUTE .STK-MED ONE Stop: 03/14/20 11:26 Lactated Ringer's (Ringers, Lactated) Confirm Administered Dose 1,000 mls @ as directed .ROUTE .STK-MED ONE Stop: 03/14/20 11:44 Lactated Ringer's (Ringers, Lactated) 1,000 mls @ 75 mls/hr IV ASDIRECTED [facility] Last Admin: 03/15/20 04:33 Dose: 75 mls/hr Documented by: Ondansetron HCl 4 mg/ Sodium (Chloride) 52 mls @ 100 mls/hr IV Q6H PRN PRN Reason: Nausea Sodium Chloride (Normal Saline) 1,000 mls @ 1,000 mls/hr IV ONETIME ONE Stop: 03/15/20 09:14 Last Admin: 03/15/20 08:42 Dose: 1,000 mls/hr Documented by: Lactated Ringer's (Ringers, Lactated) 1,000 mls @ 100 mls/hr IV ASDIRECTED [facility] Last Admin: 03/15/20 22:26 Dose: 100 mls/hr Documented by: Sodium Chloride (Normal Saline) 250 mls @ 100 mls/hr IV ASDIRECTED [facility] Stop: 03/15/20 23:00 Last Admin: 03/15/20 19:15 Dose: 100 mls/hr Documented by: Potassium Chloride/Dextrose/Sod Cl (D5 1/2 Ns W/ 20 Meq/L Kcl) 1,000 mls @ 75 mls/hr IV ASDIRECTED [facility] Last Admin: 03/16/20 21:51 Dose: 75 mls/hr Documented by: Ketamine HCl (Ketalar) Confirm Administered Dose 500 mg .ROUTE .STK-MED ONE Stop: 03/14/20 11:28 Lidocaine/Sodium Bicarbonate (Buffered Lidocaine 1% In Ns 8.4%) 0.25 ml IDERM ONETIME PRN PRN Reason: Prior to IV Start Stop: 03/14/20 18:00 Last Admin: 03/14/20 09:44 Dose: 0.25 ml Documented by: Midazolam HCl (Versed 1 Mg/Ml) Confirm Administered Dose 2 mg .ROUTE .STK-MED ONE Stop: 03/14/20 08:40 Morphine Sulfate (Morphine) 1 mg IVPUSH Q3H PRN PRN Reason: Pain (severe 7-10) Last Admin: 03/14/20 19:16 Dose: 1 mg Documented by: Neostigmine Methylsulfate (Neostigmine Methylsulfate) Confirm Administered Dose 5 mg .ROUTE .STK-MED ONE Stop: 03/14/20 12:59 Ondansetron HCl (Zofran) Confirm Administered Dose 4 mg .ROUTE .STK-MED ONE Stop: 03/14/20 08:42 Ondansetron HCl (Zofran) 4 mg IVPUSH ONETIME PRN PRN Reason: Nausea/Vomiting Stop: 03/14/20 23:00 Polysaccharide Iron Complex (Ferrex 150) 150 mg PO DAILY [facility] Last Admin: 03/16/20 10:45 Dose: 150 mg Documented by: Propofol (Diprivan 20 Ml) Confirm Administered Dose 200 mg .ROUTE .STK-MED ONE Stop: 03/14/20 08:39 Rocuronium [place] (Zemuron) Confirm Administered Dose 50 mg .ROUTE .STK-MED ONE Stop: 03/14/20 08:42 Rocuronium [place] (Zemuron) Confirm Administered Dose 50 mg .ROUTE .STK-MED ONE Stop: 03/14/20 12:12 Sodium Chloride (Saline Flush) 10 ml FLUSH ASDIRECTED PRN PRN Reason: Keep Vein Open Stop: 03/14/20 18:00 - Exam General: Reports: Alert, Oriented, Cooperative, No Acute Distress Neck: Reports: Supple, Trachea Midline Lungs: Reports: Normal Respiratory Effort Cardiovascular: Reports: Regular Rate GI/Abdominal Exam: Soft, Non-Tender, Other (abdominal wall ecchymosis) (Female) Exam: Deferred Rectal (Female) Exam: Deferred Skin: Reports: Warm, Dry, Ecchymosis Wound/Incisions: Reports: Healing Well, Dressing Dry and Intact, No Drainage Neurological: Reports: No New Focal Deficit Psy/Mental Status: Reports: Normal Mood
== END 2020-03-17 15:55 | disposition home or self-care (01) | DRG 330 ==
LOC: JD.MS 08:49
PROVIDERS: ADMIT Surgery; ATTEND Surgery
PROC: 0DTF4ZZ Resection of Right Large Intestine, Percutaneous Endoscopic Approach (ICD-10-PCS; principal; 2020-03-14)
PROC: 30233N1 Transfusion of Nonautologous Red Blood Cells into Peripheral Vein, Percutaneous Approach (ICD-10-PCS; 2020-03-15)
DX: D12.3 Benign neoplasm of transverse colon (principal); D62 Acute posthemorrhagic anemia; Z88.1 Allergy status to other antibiotic agents
CPT/HCPCS: 00790; 36415; 36430; 80048; 85025; 86850; 86900; 86901; 86922; 88307; 94760; 94761; 97161-GP; 97165-GO; 97530-GO; 97530-GP; 97535-GO; A9270-GY; J0694; J1100; J1170; J1644; J2001; J2250; J2270; J2405; J2704; J2710; J3010; J3480; J3490; J7030; J7050; J7120; P9016

== ENCOUNTER 2021-11-13 08:18 | Emergency (ER) | payer MEDICARE, OTHER ==
[2021-11-13] MEDS ORDERED: predniSONE 20 MG Tab PO ONE (10:06)
== END 2021-11-13 10:30 | disposition home or self-care (01) ==
LOC: JD.ED 08:18
DX: M06.812 Other specified rheumatoid arthritis, left shoulder (principal); I10 Essential (primary) hypertension; Z88.1 Allergy status to other antibiotic agents
CPT/HCPCS: 99283; J7512

== ENCOUNTER 2022-02-08 00:18 | Emergency (ER) | payer MEDICARE, OTHER ==
[2022-02-08] MEDS ORDERED: fentaNYL 100 MCG/2 ML SDV IVPUSH ONE ×2 (00:35→01:51)
[2022-02-08] MEDS ORDERED: Morphine 2 MG/ML SYRINGE IVPUSH ONE (04:34)
== END 2022-02-08 07:50 | disposition home or self-care (01) ==
LOC: JD.ED 00:18
DX: M25.552 Pain in left hip (principal); I10 Essential (primary) hypertension; Z88.1 Allergy status to other antibiotic agents; Z79.899 Other long term (current) drug therapy
CPT/HCPCS: 72192; 73502; 73700; 96374; 96375; 96376; 99284; J2270; J3010

== ENCOUNTER 2022-08-11 11:59 | Emergency (ER) | payer MEDICARE, OTHER ==
[2022-08-11] MEDS ORDERED: Diphtheria,Pertussis(Acell),Tetanus Vaccine 0.5 ML Syringe IM ONE (13:29)
== END 2022-08-11 13:55 | disposition home or self-care (01) ==
LOC: JD.ED 11:59
DX: S09.90XA Unspecified injury of head, initial encounter (principal); S01.81XA Laceration without foreign body of other part of head, initial encounter; I10 Essential (primary) hypertension; Z23 Encounter for immunization; Z86.16 Personal history of COVID-19; Z88.1 Allergy status to other antibiotic agents; Z79.899 Other long term (current) drug therapy; W01.198A Fall on same level from slipping, tripping and stumbling with subsequent striking against other object, initial encounter; Y92.59 Other trade areas as the place of occurrence of the external cause
CPT/HCPCS: 70450; 70450-26; 90471; 90715; 99283-25

== ENCOUNTER 2023-06-14 09:30 | Day surgery (SDC) | payer MEDICARE, OTHER ==
[~2023-06-14 09:30] MED LIST changes: -Lidocaine 1%/Sod Bicarbonate in NS 8.4% 1 ML Syringe IDERM PRN; +Morphine 8 MG, EPINEPHrine 0.3 MG, Cefuroxime 750 MG, Ketorolac 30 MG, Sodium Chloride ... PRN; +Morphine 8 MG, EPINEPHrine 0.3 MG, Cefuroxime 750 MG, Sodium Chloride 0.9% 7.9 ML PRN; +Sodium Chloride 0.9% 10 ML Syringe FLUSH SCH
[2023-06-14] MEDS ORDERED: Tranexamic Acid 1,000 MG/10 ML Vial ONE (10:29)
[2023-06-14] MEDS ORDERED: Vancomycin 1 GM SDV ONE (10:29)
[2023-06-14] MEDS ORDERED: Midazolam 1 MG/ML 2 ML SDV ONE (11:03)
[2023-06-14] MEDS ORDERED: Propofol 200 MG/20 ML SDV ONE (11:03)
[2023-06-14] MEDS ORDERED: ceFAZolin 2 GM Vial ONE (11:07)
[2023-06-14] MEDS ORDERED: Lidocaine 2% 5 ML SDV ONE (11:07)
[2023-06-14] MEDS ORDERED: Lactated Ringers 1,000 ML ONE (13:23)
[2023-06-14] MEDS ORDERED: fentaNYL 100 MCG/2 ML SDV IVPUSH PRN (13:53)
[2023-06-14] MEDS ORDERED: Ondansetron 4 MG/2 ML SDV IVPUSH PRN (13:53)
[2023-06-14] MEDS ORDERED: HYDROmorphone 0.5 MG/0.5 ML Syringe IVPUSH PRN (13:53)
[2023-06-14] MEDS ORDERED: fentaNYL 100 MCG/2 ML SDV ONE (13:55)
== END 2023-06-14 17:36 | disposition home or self-care (01) ==
LOC: JD.SDS 09:30
PROVIDERS: ATTEND Orthopaedic Surgery
DX: M16.12 Unilateral primary osteoarthritis, left hip (principal); D64.9 Anemia, unspecified; M06.9 Rheumatoid arthritis, unspecified; D12.6 Benign neoplasm of colon, unspecified; Z87.891 Personal history of nicotine dependence; Z79.899 Other long term (current) drug therapy
CPT/HCPCS: 0055T; 27130; 36415; 73501; 85018; 86850; 86900; 86901; 97110; 97116; 97161; C1713; C1776; J0171; J0690; J0697; J1170; J1885; J2250; J2270; J2704; J3010; J3370; J7030; J7120; 01214; 99100; J3490

== ENCOUNTER 2024-07-06 06:00 | Day surgery (SDC) | payer MEDICARE, OTHER ==
[~2024-07-06 06:00] MED LIST changes: -Lactated Ringers 1,000 ML IV SCH; -Morphine 8 MG, EPINEPHrine 0.3 MG, Cefuroxime 750 MG, Ketorolac 30 MG, Sodium Chloride ... PRN; -Morphine 8 MG, EPINEPHrine 0.3 MG, Cefuroxime 750 MG, Sodium Chloride 0.9% 7.9 ML PRN
[2024-07-06] MEDS ORDERED: EPINEPHrine 1 MG/ML SDV ONE (07:28)
[2024-07-06] MEDS: Lactated Ringers 1,000 ML IV SCH (07:30)
[2024-07-06] MEDS ORDERED: Propofol 200 MG/20 ML SDV ONE ×2 (07:32→09:07)
[2024-07-06] MEDS ORDERED: fentaNYL 100 MCG/2 ML SDV ONE ×2 (07:33→09:40)
[2024-07-06] MEDS ORDERED: ceFAZolin 2 GM Vial ONE (07:34)
[2024-07-06] MEDS ORDERED: Ropivacaine 0.5% 5 MG/ML 30 ML SDV ONE (07:36)
[2024-07-06] MEDS ORDERED: Dexamethasone 4 MG/ML 5 ML MDV ONE (07:37)
[2024-07-06] MEDS ORDERED: dexmedeTOMIDine HCl 200 MCG/2 ML SDV ONE (07:37)
[2024-07-06] MEDS ORDERED: Ondansetron 4 MG/2 ML SDV ONE (07:47)
[2024-07-06] MEDS: Acetaminophen 325 MG Tab PO SCH (07:57)
[2024-07-06] MEDS: Pregabalin 25 MG Cap PO SCH (07:57)
[2024-07-06] MEDS: oxyCODONE ER 10 MG TAB.ER PO SCH (07:58)
[2024-07-06] MEDS ORDERED: ePHEDrine 50 MG/ML SDV ONE (09:02)
[2024-07-06] MEDS ORDERED: Lactated Ringers 1,000 ML ONE (09:10)
[2024-07-06] MEDS: Morphine 8 MG, EPINEPHrine 0.3 MG, Cefuroxime 750 MG, Ketorolac 30 MG, Sodium Chloride ... PRN (09:38)
[2024-07-06] MEDS: Tranexamic Acid 1,000 MG/10 ML Vial ONE (09:44)
[2024-07-06] MEDS: VANCOmycin 1 GM SDV ONE (09:44)
[2024-07-06] MEDS ORDERED: Ondansetron 4 MG/2 ML SDV IVPUSH PRN (10:19)
[2024-07-06] MEDS ORDERED: HYDROmorphone 0.5 MG/0.5 ML Syringe IVPUSH PRN (10:19)
[2024-07-06] MEDS: fentaNYL 100 MCG/2 ML SDV IVPUSH PRN (10:40)
[2024-07-06] MEDS: oxyCODONE 5 MG Tab PO PRN (12:00)
== END 2024-07-06 15:45 | disposition home or self-care (01) ==
LOC: JD.SDS 06:00
PROVIDERS: ATTEND Orthopaedic Surgery
DX: M17.11 Unilateral primary osteoarthritis, right knee (principal); M06.9 Rheumatoid arthritis, unspecified; E07.9 Disorder of thyroid, unspecified; Z79.899 Other long term (current) drug therapy
CPT/HCPCS: 0055T; 27447; 64447; 73560; 97116; 97161; A9270; C1713; C1776; J0171; J0690; J0697; J1100; J1885; J2272; J2405; J2704; J2795; J3010; J7120; 01400; 99100; J3490

== ENCOUNTER 2025-02-22 06:00 | Day surgery (SDC) | payer MEDICARE, OTHER ==
[~2025-02-22 06:00] MED LIST changes: +Lactated Ringers 1,000 ML IV SCH
[2025-02-22] MEDS ORDERED: Propofol 200 MG/20 ML SDV ONE (06:50)
[2025-02-22] MEDS ORDERED: Ondansetron 4 MG/2 ML SDV ONE (06:50)
[2025-02-22] MEDS ORDERED: fentaNYL 100 MCG/2 ML SDV ONE (06:50)
[2025-02-22] MEDS ORDERED: Dexamethasone 4 MG/ML 5 ML MDV ONE ×2 (06:50→08:47)
[2025-02-22] MEDS ORDERED: Midazolam 1 MG/ML 2 ML SDV ONE (06:50)
[2025-02-22] MEDS ORDERED: Lidocaine 1% 4 ML ONE (06:51)
[2025-02-22] MEDS ORDERED: Ropivacaine 0.5% 5 MG/ML 30 ML SDV ONE (06:55)
[2025-02-22] MEDS: Lactated Ringers 1,000 ML IV SCH (07:15)
[2025-02-22] MEDS ORDERED: Ondansetron 4 MG/2 ML SDV IVPUSH PRN (07:23)
[2025-02-22] MEDS ORDERED: fentaNYL 100 MCG/2 ML SDV IVPUSH PRN (07:23)
[2025-02-22] MEDS ORDERED: Phenylephrine 1% 10 MG/ML SDV ONE (08:49)
[2025-02-22] MEDS ORDERED: Lactated Ringers 1,000 ML ONE (09:41)
== END 2025-02-22 12:28 | disposition home or self-care (01) ==
LOC: JD.SDS 06:00
PROVIDERS: ATTEND Orthopaedic Surgery
DX: M75.101 Unspecified rotator cuff tear or rupture of right shoulder, not specified as traumatic (principal); M12.811 Other specific arthropathies, not elsewhere classified, right shoulder; I10 Essential (primary) hypertension; Z88.8 Allergy status to other drugs, medicaments and biological substances; Z87.891 Personal history of nicotine dependence; Z79.899 Other long term (current) drug therapy
CPT/HCPCS: 76000; 76000-26; 97161-GP; 97530-GP; C1713; C1769; C1776; J0690; J1100; J2003; J2250; J2371; J2405; J2704; J2795; J3010; J3373; J3490; J7120